=== PATIENT | female | born 1990 | race Caucasian/White ===

== ENCOUNTER → 2016-11-10 | Outpatient (CLI) | payer OTHER ==
[2016-11-10 17:07] LABS: BILIRUBIN,URINE SMALL (NEG); CLARITY,URINE CLEAR (CLEAR); GLUCOSE, URINE (UA) NEGATIVE (NEG); LEUKOCYTE ESTERASE ,URINE MODERATE (NEG); NITRATE,URINE NEGATIVE (NEG); OCCULT BLOOD,URINE NEGATIVE (NEG); PH,URINE 5.5 (5.0-8.5); PROTEIN,URINE 30 mg/dl (NEG); UROBILINOGEN,URINE 0.2 mg/dL (0.2)
[2016-11-10 17:25] LABS: BACTERIA,URINE FEW; SQUAMOUS EPITHELIAL CELL,UR RARE; URINE SAMPLE TYPE CLEAN CATCH URINE; WBC,URINE 30-40
== END ==
LOC: LAB 16:37
PROVIDERS: ATTEND Family Medicine
DX: N39.0 Urinary tract infection, site not specified (principal)
CPT/HCPCS: 81001; 87088

== ENCOUNTER → 2016-11-11 | Outpatient (CLI) | payer OTHER ==
--- NOTE | 2016-11-11 10:40 | DI ---
US RETROPERITONEUM,11/11/2016 9:13 AM: Clinical History: Bilateral flank pain. Previous Exam: None at this facility. Findings: Multiple grayscale and color Doppler sonographic images are obtained through the retroperitoneum, and demonstrate a normal-appearing right kidney measured 10.3 cm in length. The left kidney measures 10.0 cm in length. There is no hydronephrosis nor nephrolithiasis. The urinary bladder is unremarkable measuring a volume of 293 cc. There is a post void residual of 5. 3 cc. The right ureteral jet was identified. The left ureteral jet was not seen. Impression: Normal retroperitoneal ultrasound.
== END ==
LOC: US 09:11
PROVIDERS: ATTEND Family Medicine
DX: N39.0 Urinary tract infection, site not specified (principal); R10.84 Generalized abdominal pain
CPT/HCPCS: 76770

== ENCOUNTER 2016-11-14 20:12 | Emergency (ER) | payer OTHER ==
[2016-11-14] MEDS ORDERED: ONDANSETRON 4 MG/2 ML VIAL IVP ONE (20:31)
[2016-11-14] MEDS ORDERED: NORMAL SALINE 10 ML SYRINGE FLUSH IVP PRN (20:31)
[2016-11-14 20:37] VITALS: RESP 18; TEMP 97.2
[2016-11-14] MEDS: Sodium Chloride 0.9% 1,000 ML PRIMARY IV ONE ×2 (20:50→22:39)
[2016-11-14 21:04] LABS: BASOPHILS # (AUTO) 0.02 10*3/UL; BASOPHILS % (AUTO) 0.2 % (0-1); EOSINOPHILS % (AUTO) 1.1 % (0-8); HEMATOCRIT 46.2 % (37.0-47.0); HEMOGLOBIN 15.6 g/dL (12.0-16.0); IMM GRAN % (AUTO) 0.1 % (0-5); IMM GRAN# (AUTO) 0.01 10*3/UL; LYMPHOCYTES # (AUTO) 0.55 10*3/uL; LYMPHOCYTES % (AUTO) 6.2 % (10-50); MEAN CORPUSCULAR HEMOGLOBIN 27.3 PG (27-31); MEAN CORPUSCULAR HGB CONC 33.8 g/dL (33-37); MEAN PLATELET VOLUME 10.8 FL (7.4-12.2); MONOCYTES # (AUTO) 0.38 10*3/UL (0.3-0.8); MONOCYTES % (AUTO) 4.3 % (5-15); NEUTROPHILS # (AUTO) 7.75 10*3/UL; NEUTROPHILS % (AUTO) 88.1 % (50-80); RDW COEFFICIENT OF VARIATION 14.2 % (11.5-14.5); RED BLOOD COUNT 5.72 10^6/uL (4.20-5.40); WHITE BLOOD COUNT 8.81 10^3/uL (4.8-10.8)
[2016-11-14 21:05] LABS: PLATELET MORPHOLOGY COMMENT NORMAL MORPHOLOGY (NORM)
[2016-11-14 21:11] LABS: BILIRUBIN,TOTAL 0.8 mg/dL (0.3-1.2); BUN/CREATININE RATIO 12.72 (6-20); CALCIUM 9.8 mg/dL (8.7-10.7); CREATININE 1.1 mg/dL (0.50-1.20); POTASSIUM 4.3 meq/L (3.8-5.2); TOTAL PROTEIN 8.3 g/dL (6.1-8.0)
[2016-11-14] MEDS ORDERED: HYDROmorphone 2 MG/1 ML IVP ONE (21:53)
--- NOTE | 2016-11-14 22:30 | DI ---
HISTORY: Low back pain that radiates down the left leg and into the lower abdomen for 2 weeks. Two (2) months status post delivery. History of cholecystectomy. COMPARISON: None available. TECHNIQUE: Helical CT scanning was performed from the lung bases, through the abdomen and pelvis, to the level of lesser trochanters following the administration of IV contrast material. MPR. Overall image quality is satisfactory. FINDINGS: LUNG BASES/LOWER HEART: Basilar atelectasis with no focal basilar consolidation, pleural effusion or pneumothorax. No pericardial effusion. ABDOMEN/PELVIS: LIVER: Homogeneous parenchymal attenuation. GALLBLADDER: Surgically absent. PANCREAS: No adjacent inflammatory change. ADRENAL GLANDS: Maintain their triangular shape. SPLEEN: Normal enhancement pattern. KIDNEYS: Anatomic location. No hydronephrosis. GREAT VESSELS: Enhance unremarkably. FREE INTRAPERITONEAL FLUID: No large volume. VARIABLY DISTENDED BOWEL LOOPS: Nonobstructive bowel gas pattern. APPENDIX: Not visualized however, no inflammatory change noted in the right lower quadrant. INTERNAL ORGANS: OSSEOUS STRUCTURES: No acute osseous abnormality. There is evidence of a L5-S1 dis c bulge which appears to mildly narrow the central canal (axial image 83). IMPRESSION: 1. No acute intra-abdominal inflammatory process or obstructive uropathy. 2. Evidence of a L5-S1 disc bulge which appears to mildly narrow the central canal (axial image 83). MRI can further evaluate if concern for discogenic etiology of the patients symptoms.
[2016-11-14 23:16] LABS: BILIRUBIN,URINE NEGATIVE (NEG); CLARITY,URINE CLEAR (CLEAR); GLUCOSE, URINE (UA) NEGATIVE (NEG); LEUKOCYTE ESTERASE ,URINE NEGATIVE (NEG); NITRATE,URINE NEGATIVE (NEG); OCCULT BLOOD,URINE NEGATIVE (NEG); PROTEIN,URINE NEGATIVE (NEG); UROBILINOGEN,URINE 0.2 EU/dL (0.2)
--- NOTE | 2016-11-15 02:13 | PDOC ---
General Adult HPI - General Chief Complaint: Neck / Back Complaint Stated Complaint: neck and lower abdominal discomfort Date Seen by Provider: 11/14/16 Time Seen by Provider: 20:18 Source: POSITIVE: Patient, Other (Mother) Exam Limitations: POSITIVE: No limitations Nurse's Notes Reviewed & Considered: Yes - History of Present Illness Initial Comment: The patient is a 26-year-old female. She complains of a 2 week history of low back pain, somewhat worse tonight. She also complains of some intermittent lower abdominal discomfort. Patient states she has a history of recurring urinary tract infections and she had a retroperitoneal ultrasound done 4 days ago, which was normal. She is 3 para 2 aborta 1. She is breast- feeding. Her last menstrual period was 29 October. For the last day or so she 's had some nausea and diarrhea. No melena, hematochezia, hematemesis, dysuria or hematuria. No radicular symptoms. No sensory or motor symptoms. No rashes or skin changes. Have you received a tetanus shot in the past 10 years?: Yes Body Location Affected: REPORTS: Abdomen, Back Timing: REPORTS: Constant (Present for the past 2 weeks), Getting Worse (Worse over the past 2 days) Duration: >1 week Severity: Moderate Quality: REPORTS: "Pain" Context: REPORTS: Bending, Other (Direct palpation). DENIES: None, Sitting, Standing, Activity, Emotional stress, Coughing, Recent Trauma, Recent Surgery, Sleep, Rest, Lifting, Turning, Fall, Near Fall Modifying Factors: improves with: Palpation Similar Symptoms Previously: No Recent Care Received: REPORTS: Recently Seen, Treated by MD (Seen by primary care doctor for urinary tract infection; retroperitoneal ultrasound done 4 days ago read as normal) Any Prior Injuries Related to Current Complaint?: No - Patient Home Medications Home Medications: Home Medications Vits W-Ca,Fe,FA(<1Mg) [] 1 each PO DAILY 01/10/16 Fluticasone Hfa 110 Mcg INH [Flovent 110 Mcg Hfa] 2 puff INH BID #1 inh Ranitidine HCl [Zantac] 300 mg PO DAILY #30 tab 08/23/16 HYDROcodone/APAP 5/325 Tab [[place] 5/325 Tab] 1 - 2 tab PO Q4H PRN #30 tab 11/03/ 16 Ibuprofen [Motrin] 800 mg PO Q8H PRN #60 tab 09/08/16 Nitrofurantoin Monohyd/M-Cryst [Macrobid 100 Mg Capsule] 1 cap PO BID #14 cap Sulfamethoxazole/Trimethoprim [Bactrim Ds Tablet] 1 tab PO BID #14 tab 10/27/16 Nitrofurantoin Monohyd/M-Cryst [Macrobid 100 Mg Capsule] 1 cap PO BID 14 Days Nitrofurantoin Monohyd/M-Cryst [Macrobid 100 Mg Capsule] 1 cap PO DAILY 28 Days 11/11/16 - Patient Allergies Allergies/Adverse Reactions: Allergies Allergy/AdvReac Type Severity Reaction Status Date / Time Penicillins Allergy Severe HIVES Verified 11/14/16 20:27 Past Medical History - heen HEENT History: Denies History, Chipped or Loose Teeth Cardiovascular History: Denies History Respiratory History: Denies History Gastrointestinal History: GERD, Gallbladder Disease Additional Gastrointestinal History: Gallbladder removed about 10 years ago. Genitourinary History: Denies History Endocrine History: Denies History Musculoskeletal History: Denies History Prosthesis or Implant: No Neurological History: Migraines, Motion Sickness Blood Disorders: Denies History Psychiatric History: Denies History History of Sexually Transmitted Diseases: No Female Reproductive History: Denies History Obstetrical History: Denies History Cancer History: Denies History In Past Year Been Physically Harmed or Verbally Threatened: No History of MDRO: No History of Other Communicable Diseases: No Tobacco Use: Current Every Day Smoker Alcohol Use: None Substance Use Type: None Previous Surgical History: Yes Type / Date of Surgery: lap opol Anesthesia Reactions: Yes (Face was itchy. Tx unknown.) Malignant Hyperthermia: No Significant Family History: No pertinent family hx Additional Family History: scoliosis Past Medical History Reviewed: Reviewed - No Changes ROS - Limitations ROS Limitations: No Limitations Constitution: REPORTS: Denies Symptoms Cardiovascular: REPORTS: Denies Cardiac Symptoms Respiratory: REPORTS: Denies Resp Symptoms Neurological: REPORTS: Denies Neuro Symptoms Gastrointestinal: REPORTS: Abdominal Pain, Nausea, Diarrhea Endocrine: REPORTS: Denies Symptoms Musculoskeletal: REPORTS: Back Pain (Bilateral, paralumbar) Genitourinary: REPORTS: Denies Symptoms Eyes: REPORTS: Denies Symptoms ENT: REPORTS: Denies Symptoms Skin: REPORTS: Denies Skin Symptoms Lympathic: REPORTS: Denies Lympathic Symptoms Immunologic: POSITIVE: Denies Symptoms Psychiatric: POSITIVE: Denies Psych Symptoms General Adult Exam - General Appearance General Appearance: POSITIVE: Alert, Cooperative, No Acute Distress, No Evidence of Trauma - HEENT HEENT: POSITIVE: Head Inspection Nml, Eyes Inspection Nml, Ears Inspection Nml, Nose Inspection Nml, Oral/Dental Inspect. Nml, Pharynx Inspect. Nml, PERRL, EOMI - Pupils Pupil Size: 4 mm: Bilateral (PERRLA) - Neck Neck: POSITIVE: Normal Inspection, Thyroid Normal - Respiratory Respiratory: POSITIVE: No Respiratory Distress, Breath Sounds Normal, Chest Non- Tender - Cardiovascular Cardiovascular: POSITIVE: Regular Rate & Rhythm, No Murmur, No Gallop, PMI Normal Peripheral Pulses: Radial (R): 2+, Radial (L): 2+ - Abdomen Abdomen: Soft: (All Quadrants), Normal Bowel Sounds: (All Quadrants), Denies Tenderness: (RUQ), (LUQ), No Splenomegaly: (All Quadrants), No Hepatomegaly: ( All Quadrants), No Guarding: (All Quadrants), No Rebound: (All Quadrants), No Palpable Pulse: (All Quadrants), No Palpabale Mass: (All Quadrants), No Distention: (All Quadrants), No Rigidity: (All Quadrants), Tenderness Noted: ( RLQ), (LLQ) (mild) Additional Abdominal Details: Abdominal exam shows bowel sounds to be present. Abdomen is soft. Patient does express some discomfort on firm deep direct palpation of the lower abdomen bilaterally. No flank pain on percussion. No masses, organomegaly or rebound. Patient expresses some discomfort on percussion over the lumbar spine and paralumbar areas. - Back Back: POSITIVE: Lumbosacral Tenderness (See diagram). NEGATIVE: CVA Tenderness , Thoracic Tenderness - Skin Skin: POSITIVE: Normal Color, Warm, Dry, No Rash - Extremities Extremity: Non-Tender: (All Extremities), Normal ROM: (All Extremities), Normal Inspection: (All Extremities) - Neurological / Psychological Neurological: POSITIVE: Oriented X3, merchandise for resale purchasing agent Normal As Tested, Motor Normal, Sensation Normal, 5, 6 Reflexes: Patellar (R): 2+, Patellar (L): 2+ Images - Complete Complete: 1 - Discomfort 2 - discomfort General Adult Progress - Results Reviewed by me Xrays/CTs/US Reviewed by me: Yes Discussed with Radiologist: Yes Radiology Findings: CT scan with contrast of abdomen and pelvis with reconstruction view of the lumbosacral spine done. Normal except for bulging disc at L5-S1. Lab Results Reviewed: Yes Lab Results:: Laboratory Results 11/14/16 11/14/16 Range/Units 20:50 23:12 WBC 8.81 (4.8-10.8) 10^3/uL RBC 5.72 H (4.20-5.40) 10^6/uL Hgb 15.6 (12.0-16.0) g/dL Hct 46.2 (37.0-47.0) % MCV 80.8 L (81-99) FL MCH 27.3 (27-31) PG MCHC 33.8 (33-37) g/dL RDW Std Deviation 41.7 (39-50) fL RDW Coeff of Thao 14.2 (11.5-14.5) % Plt Count 234 (140-350) 10*3/uL MPV 10.8 (7.4-12.2) FL Immature Gran % (Auto) 0.1 (0-5) % Neut % (Auto) 88.1 H (50-80) % Lymph % (Auto) 6.2 L (10-50) % [place] % (Auto) 4.3 L (5-15) % Eos % (Auto) 1.1 (0-8) % Baso % (Auto) 0.2 (0-1) % Immature Gran # (Auto) 0.01 10*3/UL Neut # (Auto) 7.75 10*3/UL Lymph # (Auto) 0.55 10*3/uL [place] # (Auto) 0.38 (0.3-0.8) 10*3/UL Eos # (Auto) 0.10 10*3/UL Baso # (Auto) 0.02 10*3/UL WBC Morphology Comment Normal morphology (NORM) Plt Morphology Comment Normal morphology (NORM) RBC Morph Comment Normal morphology (NORM) Sodium 140 (135-145) meq/L Potassium 4.3 (3.8-5.2) meq/L Chloride 106 (98-112) meq/L Carbon Dioxide 19 L (23-33) meq/L Anion Gap 15 (5-20) BUN 14 (7-22) mg/dL Creatinine 1.1 (0.50-1.20) mg/dL Estimated GFR 60 (>60 ml/min/1.73m(2)) BUN/Creatinine Ratio 12.72 (6-20) Glucose 93 (78-110) mg/dL Calculated Osmolality 290.0 (267-292) mOsm/kg Calcium 9.8 (8.7-10.7) mg/dL Total Bilirubin 0.8 (0.3-1.2) mg/dL AST 24 (8-39) IU/L ALT 37 (9-52) IU/L Alkaline Phosphatase 82 (38-126) IU/L Total Protein 8.3 H (6.1-8.0) g/dL Albumin 5.1 H (3.5-4.8) g/dL Globulin 3.2 (2.50-4.10) g/dL Albumin/Globulin Ratio 1.50 (1.3-2.0) mg/g Serum HCG, Qual Negative Ur Collection Type cc Urine Color Yellow Urine Clarity Clear (CLEAR) Urine pH 5.0 (5.0-8.5) Ur Specific [place] >1.050 (1.005-1.030) Urine Protein Negative (NEG) mg/dl Urine Glucose (UA) Negative (NEG) mg/dL Urine Ketones 15 (NEG) Urine Occult Blood Negative (NEG) Urine Nitrate Negative (NEG) Urine Bilirubin Negative (NEG) Urine Urobilinogen 0.2 (0.2) EU/dL Ur Leukocyte Esterase Negative (NEG) Ur Culture Indicated? Culture not set - Patient's Progress Pain Medication Addressed: POSITIVE: Yes (Dilaudid 2 mg IV with good pain relief ) School/Work Release Addressed: POSITIVE: Not Applicable Re-Examine Time: 22:45 Re-Examine Comment: Discomfort less on discharge; mother to drive patient home. Status: POSITIVE: Improved, Re-Examined Antibiotics Given: No - Consult Counseled: POSITIVE: Patient, Family (Mother), RE: Lab Results, RE: Radiology Results, RE: DX, RE: Need for F/U Patient Care Time - Estimated PCT Patient Care Time (In Minutes): 45 Vital Signs - Recent Vital Signs Vital Signs: Vital Signs (Last 8 hours) Temp Pulse Resp BP Pulse Ox 11/14/16 20:12 97.2 F 110 H 18 119/97 96 - VS Reviewed Vital Signs Reviewed: Yes Discharge Clinical Impression: Acute low back pain, Diarrhea Discharge Disposition: Discharged to Home Condition: Stable Patient Instructions Given at Discharge: Acute Diarrhea (ED), Back Pain (ED) Additional Instructions: Blood tests are all normal. CT scan of the abdomen and pelvis and lumbosacral spine is normal except for mild bulging of one of the disks in your lower back but no herniation. There also some fluid levels in your bowel, which is compatible with the diarrhea which you have recently had. I see no serious source for your discomfort. Recommend Tylenol for discomfort. Clear liquid diet for 12 hours and then advance. Follow-up with your primary care provider. Return here anytime if condition worsens in any way. Follow Up With: HIMANSHU LAUREN [Primary Care Provider] - (Instructions as above. Follow-up with your primary care provider. Return here anytime if condition worsens in any way.)
[2016-11-15] MEDS ORDERED: Sodium Chloride 0.9% 1,000 ML ONE (02:23)
== END 2016-11-14 23:12 | disposition home or self-care (01) ==
LOC: ER 20:12
DX: M54.5 Low back pain (principal); R19.7 Diarrhea, unspecified
CPT/HCPCS: 74177; 80053; 81003; 84703; 85025; 96361; 96374; 96375; 99283; J1170; J2405; J7030

== ENCOUNTER → 2016-11-28 | Outpatient (CLI) | payer OTHER ==
--- NOTE | 2016-11-28 15:09 | DI ---
MRI LUMBAR SPINE SCAN WITHOUT IV CONTRAST, 11/28/2016 2:13 PM: Clinical History: Low back pain. Previous Exam: None. Technique: Sagittal and axial T2 weighted; sagittal T1 weighted and T2 STIR; and axial PD. The vertebral bodies are of normal height and size. There is disc space narrowing with desiccation ch vanessa at L5-S1. The remaining lumbar disc spaces are of normal height. The cord terminates at T12 and the conus medullaris is normal. The T10-11 through L4-5 disc spaces are normal. There is no canal or neural foraminal stenosis. L5-S1 has a focal bulging disc that lies just to the right of midline and is associated with a disc annulus tear. Or neural foraminal stenosis. Readin. There is a right anterior bulging but not herniated disc that has an associated disc annulus tear . There is no canal or neural foraminal stenosis. 2. The disc spaces from T10-11 through L4-5 are normal.
== END ==
LOC: MRI 14:08
PROVIDERS: ATTEND Chiropractor
DX: M54.5 Low back pain (principal); M47.817 Spondylosis without myelopathy or radiculopathy, lumbosacral region
CPT/HCPCS: 72148

== ENCOUNTER → 2017-01-11 | Outpatient (CLI) | payer SELFPAY ==
[2017-01-11 16:33] LABS: CLARITY,URINE SLIGHTLY CLOUDY (CLEAR); URINE SAMPLE TYPE CLEAN CATCH URINE
[2017-01-11 16:34] LABS: BACTERIA,URINE MODERATE; SQUAMOUS EPITHELIAL CELL,UR FEW; WBC,URINE 30-40
== END ==
LOC: LAB 15:57
PROVIDERS: ATTEND Family Medicine
DX: R30.0 Dysuria (principal)
CPT/HCPCS: 81001; 87088

== ENCOUNTER 2018-05-29 02:05 | Inpatient (IN) ==
[2018-05-29] MEDS ORDERED: Metoclopramide Inj 10 MG/2 ML VIAL IV PRN (02:41)
[2018-05-29] MEDS ORDERED: LIDOCAINE W/ SODIUM BICARB 0.5 ML SYR SUBD PRN (02:41)
[2018-05-29] MEDS ORDERED: ONDANSETRON 4 MG/2 ML VIAL IVP PRN ×2 (02:41→19:00)
[2018-05-29] MEDS ORDERED: Lidocaine 1% 10 MG/ML - 20 ML VIAL SUBCUT PRN (02:41)
[2018-05-29] MEDS ORDERED: MISOPROSTOL 200 MCG TABLET RECTAL PRN (02:41)
[2018-05-29] MEDS ORDERED: Naloxone Inj 0.01 MG in Normal Saline Flush 1 ML IVP PRN (02:41)
[2018-05-29] MEDS ORDERED: CALCIUM CARBONATE 500 MG (TUMS) CHEWABLE TABLET PO PRN ×2 (02:41→19:00)
[2018-05-29] MEDS ORDERED: Phenylephrine Inj 50 MCG in Normal Saline Flush 0.5 ML IVP PRN (02:41)
[2018-05-29] MEDS ORDERED: METHYLERGONOVINE MALEATE 0.2 MG/1 ML VIAL IM PRN (02:41)
[2018-05-29] MEDS ORDERED: Carboprost Inj 250 MCG/ML AMP IM PRN (02:41)
[2018-05-29] MEDS ORDERED: diphenhydrAMINE 50 MG/1 ML VIAL IVP PRN ×2 (02:41→19:00)
[2018-05-29] MEDS ORDERED: NALOXONE 0.4 MG/1 ML VIAL IVP PRN (02:41)
[2018-05-29] MEDS ORDERED: LIDOCAINE HCL 2 % 10 ML JELLY URO-JECT TOPICAL PRN ×2 (02:41→19:00)
[2018-05-29] MEDS ORDERED: CefOXitin Inj 2 GM in Sodium Chloride 0.9% 100 ML IV PRN (02:41)
[2018-05-29] MEDS ORDERED: BUTORPHANOL TARTRATE 2 MG/1 ML VIAL IVP PRN (02:41)
[2018-05-29] MEDS ORDERED: FAMOTIDINE 20 MG/2 ML VIAL IVP PRN ×2 (02:41)
[2018-05-29] MEDS ORDERED: OXYTOCIN 10 UNIT/1 ML IM PRN (02:41)
[2018-05-29] MEDS ORDERED: TERBUTALINE SULFATE 1 MG/1 ML SDV SUBCUT PRN (02:41)
[2018-05-29] MEDS ORDERED: Nalbuphine Inj 20 MG/ML Ampule IVP PRN ×2 (02:41→19:00)
[2018-05-29] MEDS ORDERED: CITRIC ACID/SODIUM CITRATE 30 ML CUP PO PRN (02:41)
[2018-05-29] MEDS ORDERED: ePHEDrine Inj 5 MG in Normal Saline Flush 1 ML IVP PRN (02:41)
[2018-05-29] MEDS ORDERED: Oxytocin 20 Units + LR 20 UNIT/1,000 ML BAG IV SCH ×2 (02:45→19:00)
[2018-05-29 03:24] LABS: Hematocrit [HCT] 34.7 % (37.0-47.0); Hemoglobin [HGB] 11.8 g/dL (12.0-16.0); MEAN CORPUSCULAR HEMOGLOBIN 29.1 PG (27-31); MEAN CORPUSCULAR VOLUME 85.7 FL (81-99); MEAN PLATELET VOLUME 11.3 FL (7.4-12.2); RED BLOOD COUNT 4.05 10^6/uL (4.20-5.40)
[2018-05-29] MEDS: Lactated Ringers-OB Dept 1,000 ML PRIMARY IV SCH ×2 (07:35→10:45)
[2018-05-29] MEDS: fentaNYL Inj 100 MCG/2 ML VIAL IV PRN ×7 (09:28→18:00)
[2018-05-29] MEDS: Oxytocin 20 Units + LR 20 UNIT/1,000 ML BAG IV SCH ×2 (12:49→13:25)
[2018-05-29] MEDS ORDERED: KETOROLAC 15 MG/1 ML VIAL ONE (18:11)
[2018-05-29] MEDS ORDERED: KETOROLAC 15 MG/1 ML VIAL IVP ONE (18:14)
[2018-05-29] MEDS ORDERED: ACETAMINOPHEN 325 MG TABLET PO PRN (19:00)
[2018-05-29] MEDS ORDERED: DIPH,PERTUSS,TET(ADACEL) VAC/PF 0.5 ML (Tdap) IM ONE (19:00)
[2018-05-29] MEDS ORDERED: BENZOCAINE/MENTHOL SPRAY 56 GM BOTTLE TOPICAL PRN (19:00)
[2018-05-29] MEDS ORDERED: LANOLIN HPA 40 GM TUBE TOPICAL PRN (19:00)
[2018-05-29] MEDS ORDERED: Ondansetron ODT Tab 4 MG TAB PO PRN (19:00)
[2018-05-29] MEDS ORDERED: diphenhydrAMINE 25 MG CAPSULE PO PRN (19:00)
[2018-05-29] MEDS ORDERED: GLYCERIN/WITCH HAZEL 1 BOX TOPICAL PRN (19:00)
[2018-05-29] MEDS: DOCUSATE 100 MG CAPSULE PO SCH (21:08)
--- NOTE | 2018-05-29 23:12 | OB.DEL.SUM ---
Delivery Note Delivery Summary: Pt is a 27 yo G3 now P3 at 37 2/7 weeks by first trimester u/s who presented to labor and delivery last [facility] with grossly ruptured membranes, clear fluid. Pt stated that she had SROM at 0030. She initially had no contractions. She ambulated and then rested through the rest of the noc. This morning, her contractions were beginning to increase in intensity. She received a dose of fentanyl and they quickly spread out to every 7-8 minutes. Pitocin augmentation was initiated around 1230. The pt progressed to 6 cm and then, due to another delivery, the pitocin was stopped for a short period of time. After it was restarted 2 hours later, she progressed to 8 cm and then had an anterior lip. Several position changes, including side to side and on her hands and knees, proceeded to change her cervix to complete. She pushed for about 10 minutes to the delivery of a viable male , straight OP. The remainder of the baby delivered quickly. Time of delivery was 1753. There was a nuchal cord x 1. Cord clamping was delayed x 45 seconds. Meanwhile, the baby was dried and stimulated and his nose and mouth were suctioned with the bulb suction. The cord was then doubly clamped by myself and cut by the father of the baby. Baby was placed on mom's chest. Cord blood and cord gases were obtained for analysis. The placenta delivered spontaneously and intact, with a 3 vessel cord, at 1800. 20 mU of pitocin was infused. The vagina and perineum were examined and no lacerations were noted. The pt's bladder was drained with a red rubber catheter under sterile technique. Lochia was normal. EBL 350 cc. Apgars were 9 at 1 minute and 9 at 5 minutes. Baby weighed 6#4 oz. Both mom and baby tolerated delivery well and are in stable condition at this time.
[2018-05-30] MEDS: HYDROcodone-APAP 5 MG -325 MG TABLET PO PRN ×6 (00:47→21:28)
[2018-05-30 05:08] LABS: Hematocrit [HCT] 33.7 % (37.0-47.0); Hemoglobin [HGB] 11.1 g/dL (12.0-16.0); MEAN CORPUSCULAR HEMOGLOBIN 28.5 PG (27-31); MEAN CORPUSCULAR HGB CONC 32.9 g/dL (33-37); MEAN CORPUSCULAR VOLUME 86.4 FL (81-99); MEAN PLATELET VOLUME 11.8 FL (7.4-12.2); RED BLOOD COUNT 3.9 10^6/uL (4.20-5.40)
[2018-05-30] MEDS: IBUPROFEN 800 MG TABLET PO PRN ×2 (09:46→17:25)
[2018-05-30] MEDS: DOCUSATE 100 MG CAPSULE PO SCH ×2 (09:46→21:27)
[2018-05-30] MEDS: Prenatal Multivitamin Tab 1 TAB TAB PO SCH (09:46)
[2018-05-30] MEDS: Lactated Ringers-OB Dept 1,000 ML PRIMARY IV SCH (20:56)
[2018-05-31] MEDS: HYDROcodone-APAP 5 MG -325 MG TABLET PO PRN ×3 (01:07→09:37)
[2018-05-31] MEDS: IBUPROFEN 800 MG TABLET PO PRN ×2 (01:07→09:36)
[2018-05-31 05:31] VITALS: TEMP 98.1
[2018-05-31] MEDS: Prenatal Multivitamin Tab 1 TAB TAB PO SCH (09:37)
[2018-05-31] MEDS: DOCUSATE 100 MG CAPSULE PO SCH (09:37)
[2018-05-31 09:41] VITALS: BP 106/62; RESP 16; O2SAT 98
--- NOTE | 2018-05-31 11:20 | PTI REPORT ---
Thank you for the referral of Nidhi Sanabria. She was seen on 05/31/18 for an inpatient evaluation secondary to low back pain post . SUBJECTIVE: The patient is a 27-year-old female who was referred by Dr. Andrew secondary to low back pain post . She is in our inpatient [facility]ity [facility]. The patient delivered a son yesterday. She states she has had back pain off and on since her second . She states her pain is a little bit more right sided than left sided but denies any radicular pain down into the hip or legs today. PAST MEDICAL HISTORY: Past medical history can be found in the patient's medical record. OBJECTIVE FINDINGS: The patient states she has had back pain off and on since her second . She states her pain is a little bit more right sided than left sided but denies any radicular pain down into the hip or legs today. ASSESSMENT: Problem List: Low back pain post Physical Therapy Goals: To be met by discharge from inpatient: Patient will report decreased low back pain. Patient will demonstrate increased functional mobility. TREATMENT PLAN: Patient will be seen on a PRN basis until discharge. INITIAL TREATMENT: Treatment today consisted of the initial evaluation followed by a moist heat pack x20 minutes with interferential current, manual therapy techniques, and Kinesio tape. ARLET
--- NOTE | 2018-05-31 11:30 | OB.PROGRES ---
Subjective Post Op Day: 1 Pain Management: PO Ford Catheter: No Flatus: Yes Diet: Regular Feeding Method: Exculsively Ambulating: Yes Concerns / Additional Information: Says that her back is better. Had a bowel movement last night right after delivery. No other complaints. Objective - General General Appearance: POSITIVE: No Acute Distress, Cooperative - Cardiovacular Cardiovascular Exam: POSITIVE: RRR, No Murmur, No Clicks Edema: +1 Pedal Edema Extremities: Negative Yancy's - Bilaterally - Respiratory Respiratory Exam: POSITIVE: Clear to Auscultation - Bilaterally, Breathing Non Labored - Abdomen Bowel Sounds: Present Assesstment / Plan (1) Vaginal delivery Current Visit: Yes Status: Acute Assessment / Plan: -routine cares. -breast feeding going ok, seems to be improving as the day goes on. -rh positive. -rubella immune. -due to baby not feeding well at this point, will likely d/c home in the am.
--- NOTE | 2018-05-31 11:38 | DCSUMMARY ---
Hospitalization Summary Admit Date: 05/29/18 Discharge Date: 05/31/18 Primary Diagnosis:: PROM, 37 2/7 weeks. Secondary Diagnosis:: GBS negative. Primary Surgery and Date: n/a Delivery Type: Vaginal Hospital Course: Pt had an uneventful vaginal delivery and course. On the day of discharge, she is ambulating, tolerating a regular diet and independent in her activities of daily living. Baby is feeding better today. / Postop Complications: none Complications: none Exam - Vitals Vital Signs: Vital Signs Temperature 98.1 F Temperature Source Oral Pulse Rate [Apical] 72 Pulse Rate [Pulse Oximeter] 83 Pulse Rate 77 Respiratory Rate 16 Blood Pressure [Left Arm] 105/59 Blood Pressure [Right Arm] 106/62 Blood Pressure 98/57 Pulse Ox 98 Oxygen Delivery Method Room Air Height 5 ft 11 in Weight 211 lb - General General Appearance: No Acute Distress, Cooperative - Head Head Exam: Normal Inspection, Normocephalic - ENT ENT Exam: POSITIVE: Normal Exam - Neck Neck Exam: Normal Inspection - Respiratory Respiratory Exam: POSITIVE: Clear to Auscultation - Bilaterally, Breathing Non Labored - Cardiovascular Cardiovascular Exam: POSITIVE: RRR, No Murmur - GI/Abdominal GI/Abdominal Exam: POSITIVE: Normal Bowel Sounds, Non Tender, Non Distended, Soft - Extremities Extremities Exam: POSITIVE: Normal Inspection, Full ROM, Normal Capillary Refill - Back Back Exam: POSITIVE: Normal Inspection - Neurological Neurological Exam: POSITIVE: Alert, Oriented x 3 - Psychiatric Psychiatric Exam: POSITIVE: Normal Affect, Normal Mood - Integumentary Integumentary Exam: POSITIVE: Normal Color, Warm, Dry Patient Problems - Patient Problem List (1) Vaginal delivery Current Visit: Yes Status: Acute Code(s): O80 - Encounter for full-term uncomplicated delivery Category: Medical
== END 2018-05-31 14:00 | disposition home or self-care (01) | DRG 775 ==
LOC: OBIP 02:26 → UNDODISIN 05-31 14:00
PROVIDERS: ADMIT Family Medicine; ATTEND Family Medicine